=== PATIENT | female | born 1955 | race Caucasian/White ===

== ENCOUNTER → 2021-06-16 | Outpatient (CLI) | payer OTHER ==
[~2021-06-16] MED LIST: ALBUTEROL; AMLODIPINE BESY10 MG PO; ATENOLOL-CHLOR1 EAC1 PO; FAMOTIDINE20 MG PO; FLUTICASONE; OMEPRAZOLE20 M1 PO; TRICOR 145 MG145 MG PO; ZYRTEC10 M3 PO
[2021-06-16 10:57] LABS: HEMOGLOBIN 15.6 gm/dl (12.3-15.3); RED BLOOD COUNT 5.15 M/UL (4.00-5.10); WHITE BLOOD COUNT 9.8 K/UL (4.5-11.0)
[2021-06-16 11:15] LABS: BUN/CREATININE RATIO 35 (0-10)
== END ==
LOC: OPSV2 09:00
PROVIDERS: Obstetrics & Gynecology
DX: Z01.818 Encounter for other preprocedural examination (principal); N81.9 Female genital prolapse, unspecified; R94.31 Abnormal electrocardiogram [ECG] [EKG]
CPT/HCPCS: 36415; 80053; 85025; 93005